=== PATIENT | female | born 1990 | race Caucasian/White ===

== ENCOUNTER 2016-12-21 18:46 | Outpatient (CLI) | payer MEDICAID | END 2016-12-21 18:47 | disposition critical access hospital (66) | DX: R45.851 Suicidal ideations (principal) | CPT/HCPCS: A0425; A0429 ==

== ENCOUNTER 2016-12-21 19:07 | Emergency (ER) | payer MEDICAID ==
[2016-12-21] MEDS ORDERED: LORazepam 0.5 MG TABLET PO STA (20:42)
[2016-12-21] MEDS ORDERED: IBUPROFEN 600 MG TABLET PO STA (20:42)
[2016-12-21] MEDS ORDERED: POTASSIUM BICARB 25 MEQ TABLET PO STA (20:43)
[2016-12-21] MEDS ORDERED: IBUPROFEN 600 MG TABLET PO ONE (20:58)
[2016-12-21] MEDS ORDERED: LORazepam 0.5 MG TABLET ONE (20:59)
[2016-12-21] MEDS ORDERED: POTASSIUM BICARB 25 MEQ TABLET PO ONE (20:59)
== END 2016-12-22 01:01 | disposition home or self-care (01) ==
DX: F32.9 Major depressive disorder, single episode, unspecified (principal); R45.851 Suicidal ideations
CPT/HCPCS: 36415; 80053; 80306; 80307; 80320; 80329; 81001; 81025; 83690; 85025; 99283; 99284; A9270

== ENCOUNTER 2016-12-22 13:08 | Outpatient (CLI) | payer MEDICAID | END 2016-12-22 13:09 | disposition critical access hospital (66) | DX: T42.4X2A Poisoning by benzodiazepines, intentional self-harm, initial encounter (principal) | CPT/HCPCS: A0425; A0429 ==

== ENCOUNTER 2016-12-22 13:22 | Emergency (ER) | payer MEDICAID | END 2016-12-22 23:12 | DX: T42.4X2A Poisoning by benzodiazepines, intentional self-harm, initial encounter (principal); T42.8X2A Poisoning by antiparkinsonism drugs and other central muscle-tone depressants, intentional self-harm, initial encounter; T40.692A Poisoning by other narcotics, intentional self-harm, initial encounter; F10.129 Alcohol abuse with intoxication, unspecified; Y92.008 Other place in unspecified non-institutional (private) residence as the place of occurrence of the external cause; F32.9 Major depressive disorder, single episode, unspecified; I45.81 Long QT syndrome; R00.0 Tachycardia, unspecified ==

== ENCOUNTER 2018-05-20 04:25 | Emergency (ER) | payer MEDICAID, OTHER ==
--- NOTE | 2018-05-20 04:46 | ED Physician Documentation ---
History of Present Illness - Stated complaint Stated Complaint: LT LEG PAIN,WEAKNESS - Chief complaint Chief Complaint: Ext Problem - History obtained from History obtained from: Patient - History of Present Illness Timing: How many weeks ago (1) Pain level max: 10 Pain level now: 8 Radiates to: left knee Improved by: rest Worsened by: movement - Additonal information Additional information: c/o 1 week atraumatic, gradual onset, progressive left low back and lateral hip pain that radiates down to left anterior knee. evaluated at ED yesterday, given toradol and valium, rx for mobic and valium. patient says she has had no relief with these medications Review of Systems Constitutional: reports: Reviewed and negative : denies: Unable to Void, Incontinent Skin: denies: Rash Musculoskeletal: reports: Back pain, Extremity pain, Joint pain, Pain with weight bearing. denies: Neck pain, Extremity swelling Neurologic: denies: Focal weakness, Numbness PD PAST MEDICAL HISTORY - Past Medical History Past Medical History: Yes Psych: Depression, Anxiety - Past Surgical History Past Surgical History: No - Present Medications Home Medications: Ambulatory Orders Medication Instructions Recorded Confirmed HYDROcod/ACETAM 5/325 [[place]lin 5/325] 1 - 2 ea PO Q6H PRN #15 tablet 12/15/1505/01 Lorazepam [Lorazepam] 2 mg ORAL QPM 12/21/16 12/21/16 LORazepam [Lorazepam] 2 mg PO Q8HR PRN #10 tablet 12/22/16 oxyCODONE/ACET 5/325 [Percocet 5 1 - 2 each PO Q6H PRN #14 tablet 05/20/18 mg/325 mg] - Allergies Allergies/Adverse Reactions: Allergies Allergy/AdvReac Type Severity Reaction Status Date / Time No Known Drug Allergies Allergy Verified 05/20/18 05:31 - Social History Does the pt smoke?: No Smoking Status: Never smoker Does the pt drink ETOH?: Yes Does the pt have substance abuse?: No - Immunizations Immunizations are current?: Yes - POLST Patient has POLST: No PD ED PE NORMAL - Vitals Vital signs reviewed: Yes - General General: Alert and oriented X 3, Well developed/nourished, Other (NAD at times, but also has episodic moderate painful distress (mostly when moving LLE)) - Cardiac Cardiac: RRR, No murmur - Respiratory Respiratory: No respiratory distress, Clear bilaterally - Abdomen Abdomen: Soft, Non tender - Back Back: No spinal TTP - Derm Derm: Normal color, Warm and dry, No rash - Extremities Extremities: No deformity, No tenderness to palpate, No edema, No calf tenderness / cord - Neuro Neuro: No motor deficit, No sensory deficit PD ED PE EXPANDED - Extremities Extremities: Limited ROM (left hip and knee due to painful ROM), Pedal Pulses Present. No: Joint effusion, Red warm joint Results - Vitals Vitals: Vital Signs - 24 hr 05/20/18 05/20/18 05/20/18 04:28 06:36 07:32 Temperature 36.6 C Heart Rate 103 H 95 85 Respiratory 20 17 14 Rate Blood Pressure 144/99 H 124/80 154/100 H O2 Saturation 100 100 100 Oxygen O2 Source Room air - Rads (name of study) LLE doppler US Radiology: Prelim report reviewed, See rad report PD MEDICAL DECISION MAKING - ED course Complexity details: reviewed results, re-evaluated patient, considered differential, d/w patient - Sepsis Event Vital Signs: Vital Signs - 24 hr 05/20/18 05/20/18 05/20/18 04:28 06:36 07:32 Temperature 36.6 C Heart Rate 103 H 95 85 Respiratory 20 17 14 Rate Blood Pressure 144/99 H 124/80 154/100 H O2 Saturation 100 100 100 Oxygen O2 Source Room air Departure - Departure Disposition: 01 Home, Self Care Clinical Impression: Leg pain, left Condition: Good Instructions: ED Acute Pain [facility] Prescriptions: oxyCODONE/ACET 5/325 [Percocet 5 mg/325 mg] 1 - 2 each PO Q6H PRN #14 tablet PRN Reason: Pain Forms: Activity restrictions Discharge Date/Time: 05/20/18 07:35
[2018-05-20] MEDS ORDERED: HYDROmorphone 1 MG/ML CARPUJECT IM STA ×2 (05:22→07:17)
[2018-05-20] MEDS ORDERED: diazePAM 5 MG TABLET PO STA (05:22)
--- NOTE | 2018-05-20 06:28 | Ultrasound Report ---
Reason: atraumatic LLE pain Procedure Date: 05/20/2018 Accession Number: [id number] / [id number] Procedure: US - Duplex Ext Veins Left CPT Code: FULL RESULT: EXAM: LEFT LOWER EXTREMITY VENOUS ULTRASOUND EXAM DATE: 05/20/2018 06:10 AM. CLINICAL HISTORY: Atraumatic left lower extremity pain. COMPARISON: None. TECHNIQUE: Real-time sonographic vascular imaging was performed by the mobile home laborer through the lower extremity utilizing both color-flow and Doppler spectral analysis. Multiple enrollment eligibility representative static images were saved for review. FINDINGS: Common Femoral Vein (CFV): Normal. CFV-GSV Junction: Normal. Profunda Femoral Vein (PFV): Normal. Femoral Vein (FV) Prox: Normal. Femoral Vein (FV) Mid: Normal. Femoral Vein (FV) Dist: Normal. Popliteal Vein: Normal. Posterior Tibial Veins: Normal. Peroneal Veins: Normal. Other: None. IMPRESSION: No evidence for left leg deep venous thrombosis. [facility]
[2018-05-20 07:34] VITALS: BP 154/100
== END 2018-05-20 07:35 | disposition home or self-care (01) ==
LOC: ED 04:25
DX: M79.662 Pain in left lower leg (principal)
CPT/HCPCS: 93971; 96372; 99283; A9270; J1170

== ENCOUNTER 2018-10-22 14:54 | Emergency (ER) | payer OTHER ==
[2018-10-22 15:45] VITALS: BP 147/97
--- NOTE | 2018-10-22 18:11 | ED Physician Documentation ---
PD HPI UPPER EXT INJURY - Stated complaint Stated Complaint: THUMB INJ - Chief complaint Chief Complaint: Ext Problem - History obtained from History obtained from: Patient - History of Present Illness Location: Left, Finger (thumb) Type of injury: Crush Where injury occurred: Home Timing - onset: Today Timing - duration: Minutes Timing - details: Abrupt onset, Still present Improved by: Rest, Ice, Immobilization Worsened by: Moving, Palpating Associated symptoms: Swelling, Discolored Contributing factors: No: Anticoagulated Similar symptoms before: Has not had sx before Recently seen: Not recently seen - Additonal information Additional information: 28-year-old female who was getting out of her car today to get into her periods house when she slipped on some ice and grabbed the door of her car which slammed on her thumb. She had to get the keys out of her pocket to open the door to get her thumb out. She has swelling and tenderness over the dorsum of the thumb. Review of Systems Constitutional: denies: Fever Eyes: denies: Decreased vision Ears: denies: Ear pain Nose: denies: Congestion Throat: denies: Sore throat Respiratory: denies: Cough GI: denies: Abdominal Pain, Nausea, Vomiting : denies: Dysuria PD PAST MEDICAL HISTORY - Past Medical History Psych: Depression, Anxiety - Past Surgical History Past Surgical History: No /[employer]: LEEP (Cervical surgery) - Present Medications Home Medications: Ambulatory Orders Medication Instructions Recorded Confirmed HYDROcod/ACETAM 5/325 [[place] 5/325] 1 - 2 ea PO Q6H PRN #15 tablet 12/15/15 12/21/16 Lorazepam 2 mg ORAL QPM 12/21/16 12/21/16 LORazepam [Lorazepam] 2 mg PO Q8HR PRN #10 tablet 12/22/16 oxyCODONE/ACET 5/325 [Percocet 5 1 - 2 each PO Q6H PRN #14 tablet 05/20/18 mg/325 mg] Hydrocodone/Acetaminophen 1 - 2 each PO Q6H PRN #14 tablet 10/22/18 [Hydrocodon-Acetaminophen 5-325] - Allergies Allergies/Adverse Reactions: Allergies Allergy/AdvReac Type Severity Reaction Status Date / Time No Known Drug Allergies Allergy Verified 10/22/18 15:45 - Social History Does the pt smoke?: No Smoking Status: Never smoker Does the pt drink ETOH?: Yes Does the pt have substance abuse?: No - Immunizations Immunizations are current?: Yes - POLST Patient has POLST: No PD ED PE NORMAL - Vitals Vital signs reviewed: Yes (hypertension ) - General General: No acute distress, Well developed/nourished - HEENT HEENT: Atraumatic, PERRL, EOMI - Respiratory Respiratory: No respiratory distress - Derm Derm: Normal color, Warm and dry, No rash - Extremities Extremities: Other (There is swelling to the left thumb from the base of the MCP joint to the DIP joint. There is an abrasion to the dorsum about 1cm round. There is no injury to the nail. The movement is restricted by swelling and pain. 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, No motor deficit, No sensory deficit, Normal speech Eye Opening: Spontaneous Motor: Obeys Commands Verbal: Oriented GCS Score: 15 - Psych Psych: Normal mood, Normal affect Results - Vitals Vitals: Vital Signs - 24 hr 10/22/18 15:44 Temperature 36.7 C Heart Rate 76 Respiratory 18 Rate Blood Pressure 147/97 H O2 Saturation 100 Oxygen O2 Source Room air - Rads (name of study) thumb Radiology: Prelim report reviewed (Impression: No fracture or malalignment.), EMP read indepedently, See rad report Procedures - Splint (location) thumb left Splint applied by: Tech Type of splint: Fiberglass, Thumb spica Other: Patient tolerated well, No complications, Neurovascular intact, Good alignment PD MEDICAL DECISION MAKING - ED course Complexity details: reviewed results, re-evaluated patient, considered differential, d/w patient ED course: 28-year-old female caught her hand in the door of her car while she was falling and has a crush injury to her thumb. She has no evidence of a fracture she is placed into a thumb spica and will provide some pain medication. Departure - Departure Disposition: 01 Home, Self Care Clinical Impression: Thumb contusion Qualifiers: Encounter type: initial encounter Damage to nail status: without damage Laterality: left Qualified Code(s): S60.012A - Contusion of left thumb without damage to nail, initial encounter Condition: Stable Instructions: ED Contusion Hand Follow-Up: [facility] [Provider Group] Prescriptions: Hydrocodone/Acetaminophen [Hydrocodon-Acetaminophen 5-325] 1 - 2 each PO Q6H PRN #14 tablet PRN Reason: pain
--- NOTE | 2018-10-22 18:13 | XRAY Report ---
Reason: injury to the thumb Procedure Date: 10/22/2018 Accession Number: [id number] / [id number] Procedure: XR - Hand 3 View LT CPT Code: FULL RESULT: EXAM: LEFT HAND RADIOGRAPHY EXAM DATE: 10/22/2018 04:07 PM. CLINICAL HISTORY: Injury to the thumb in a car door. COMPARISON: None. TECHNIQUE: 3 views. FINDINGS: Bones: Normal. No fractures or bone lesions. Joints: Normal. No subluxations. Soft Tissues: Mild soft-tissue swelling at the proximal phalanx of the left thumb. IMPRESSION: No fracture or malalignment. RADIA
== END 2018-10-22 18:48 | disposition home or self-care (01) ==
LOC: ED 14:54
DX: S60.012A Contusion of left thumb without damage to nail, initial encounter (principal); V48.4XXA Person boarding or alighting a car injured in noncollision transport accident, initial encounter
CPT/HCPCS: 29125; 99283